=== PATIENT | male | born 2005 | race Caucasian/White ===

== ENCOUNTER 2024-10-14 10:37 | Emergency (ER) | payer OTHER ==
[~2024-10-14] VITALS: Ht 190.5 cm; Wt 102.0 kg
[2024-10-14 10:40] VITALS: TEMP 98.8
[2024-10-14] MEDS: NS (Normal Saline) 0.9% 1,000 ML IV ONE (14:46)
[2024-10-14] MEDS: KETOROLAC 30 MG/ML 1 ML VIAL IV ONE (14:47)
[2024-10-14] MEDS: diphenhydrAMINE 50 MG/ML VIAL IV ONE (14:47)
[2024-10-14] MEDS: dexAMETHasone 4 MG/ML 1 ML VIAL IV ONE (14:47)
[2024-10-14] MEDS ORDERED: RIZA10TA58 PO (16:25)
[2024-10-14 16:45] VITALS: BP 110/55; O2SAT 99
== END 2024-10-14 16:56 | disposition home or self-care (01) ==
LOC: M ED 10:37
DX: G44.309 Post-traumatic headache, unspecified, not intractable (principal); Z91.09 Other allergy status, other than to drugs and biological substances; Z79.899 Other long term (current) drug therapy
CPT/HCPCS: 70450; 72125; 96361; 96374; 99284; J1100; J1200; J1885; J2765